=== PATIENT | male | born 1960 | race Caucasian/White ===

== ENCOUNTER 2019-07-31 18:58 | Emergency (ER) | payer BC, OTHER ==
[2019-07-31] MEDS ORDERED: HYDROmorphone 1 MG/ML Syringe IM ONE (19:16)
--- NOTE | 2019-07-31 19:20 | EDM.PDOC ---
ED HPI GENERAL MEDICAL PROBLEM - General Chief Complaint: Upper Extremity Injury/Pain Stated Complaint: LEFT FINGER POSSBILE BREAKING Time Seen by Provider: 07/31/19 19:05 Source of Information: Reports: Patient History Limitations: Reports: No Limitations - History of Present Illness INITIAL COMMENTS - FREE TEXT/NARRATIVE: HISTORY AND PHYSICAL: History of present illness: Patient is a 58-year-old male who presents to the emergency room with complaints of "dislocated shoulder" on the left. He states last night he slipped and fell on his left side resulting in what he believes is a dislocation. He has tried multiple times to reduce it himself, has been unsuccessful. He has had dislocations before and recalls it happening quite frequently several years ago. It has not happened in 1 to 2 years. Denies hitting his head or having any LOC. Denies any other extremity involvement. Patient denies any fever, chills, headache, change in vision, syncope or near syncope. Denies any cardiac, respiratory, GI or symptoms. Patient has been eating and drinking appropriately. Review of systems: As per history of present illness and below otherwise all systems reviewed and negative. Past medical history: As per history of present illness and as reviewed below otherwise noncontributory. Surgical history: As per history of present illness and as reviewed below otherwise noncontributory. Social history: See social history for further information Family history: As per history of present illness and as reviewed below otherwise noncontributory. Physical exam: General: Well-developed and well-nourished 58-year-old male. Alert and oriented. Nontoxic-appearing and in no acute distress. HEENT: Atraumatic, normocephalic, pupils equal and reactive bilaterally, negative for conjunctival pallor or scleral icterus, mucous membranes moist, TMs normal bilaterally, throat clear, neck supple, nontender, trachea midline. No drooling or trismus noted. No meningeal signs. No hot potato voice noted. Lungs: Clear to auscultation, breath sounds equal bilaterally, chest nontender. Heart: S1S2, regular rate and rhythm without overt murmur Abdomen: Soft, nondistended, nontender. C-spine/Back: No pinpoint vertebral tenderness upon palpation. No crepitus, step -offs or obvious deformities. Patient is ambulatory into the emergency room without difficulty or deficit. Able to rock back on heels and walk on toes. Denies any urinary or fecal incontinence. Denies any numbness, tingling or saddle paresthesia. Skin: Intact, warm, dry. No lesions or rashes noted. Extremities: Limited ROM of left shoulder. Unable to touch the contralateral side. Otherwise he moves all other extremities per self without difficulty or deficits, negative for cords or calf pain. Neurovascular unremarkable. Neuro: Awake, alert, oriented. Cranial nerves II through XII unremarkable. Cerebellum unremarkable. Motor and sensory unremarkable throughout. Exam nonfocal. Notes: Attempted closed reduction with massage and gentle traction with assistance of Dr Zavala. We were unsuccessful. Patient is larger stature and muscular; will likely need sedation. Anesthesia was called. A consent was obtained from the patient prior to closed reduction. GATE PERSON and Dr Zavala performed closed reduction without any complication. GATE PERSON recovered patient. VSS. Shoulder immobilizer post closed reduction of left shoulder until follow up with ortho. Patient has a ride home. Supportive care measures were reviewed and discussed. Voices understanding and is agreeable to plan of care. Denies any further questions or concerns at this time. Diagnostics: X-ray Therapeutics: Dilaudid IM, Versed, Propofol Prescription: None Impression: Shoulder dislocation, left Plan: 1. Rest, ice, elevate the affected extremity. Please wear the shoulder immobilizer as directed. 2. Tylenol and/or Ibuprofen as needed for pain management. 3. Follow up with the Orthopedic provider as we discussed. Return to the ED as needed and as discussed. Definitive disposition and diagnosis as appropriate pending reevaluation and review of above. left shoulder Pain Score (Numeric/FACES): 9 - Related Data Allergies Allergy/AdvReac Type Severity Reaction Status Date / Time No Known Allergies Allergy Verified 07/31/19 19:12 Home Meds: Home Meds Lisinopril 10 mg PO DAILY 11/08/17 [History] metFORMIN [Glucophage] 500 mg PO BID 11/08/17 [History] Past Medical History - Past Health History Medical/Surgical History: Denies Medical/Surgical History Cardiovascular History: Reports: Hypertension Endocrine/Metabolic History: Reports: Diabetes, Type II Social & Family History - Family History Family Medical History: Noncontributory - Tobacco Use Smoking Status *Q: Never Smoker Second Hand Smoke Exposure: No - Caffeine Use Caffeine Use: Reports: Tea - Recreational Drug Use Recreational Drug Use: No Review of Systems - Review of Systems Review Of Systems: Comprehensive ROS is negative, except as noted in HPI. ED EXAM, GENERAL - Physical Exam Exam: See Below (See dictation) Course - Vital Signs Last Recorded V/S: Last Vital Signs Temp 97.7 F 07/31/19 19:10 Pulse 83 07/31/19 20:54 Resp 15 07/31/19 20:54 BP 144/78 H 07/31/19 20:54 Pulse Ox 96 07/31/19 20:54 - Orders/Labs/Meds Orders: Active Orders 24 hr Category Date Time Status Sodium Chloride 0.9% [Saline Flush] Med 07/31/19 19:55 Active 10 ml FLUSH ASDIRECTED PRN Sodium Chloride 0.9% [Saline Flush] Med 07/31/19 19:55 Active 2.5 ml FLUSH ASDIRECTED PRN DME for Discharge [COMM] Stat Oth 07/31/19 20:01 Ordered Saline Lock Insert [OM.PC] Stat Oth 07/31/19 19:55 Ordered Medication Orders Sodium Chloride (Saline Flush) 10 ml FLUSH ASDIRECTED PRN PRN Reason: Keep Vein Open Sodium Chloride (Saline Flush) 2.5 ml FLUSH ASDIRECTED PRN PRN Reason: Keep Vein Open Meds: Medications Generic Name Dose Route Start Last Admin Trade Name Freq PRN Reason Stop Dose Admin Sodium Chloride 10 ml 07/31/19 19:55 Saline Flush FLUSH ASDIRECTED PRN Keep Vein Open Sodium Chloride 2.5 ml 07/31/19 19:55 Saline Flush FLUSH ASDIRECTED PRN Keep Vein Open Discontinued Medications Generic Name Dose Route Start Last Admin Trade Name Freq PRN Reason Stop Dose Admin Hydromorphone HCl 1 mg 07/31/19 19:16 07/31/19 19:22 Dilaudid IM 07/31/19 19:17 1 mg ONETIME ONE Administration Midazolam HCl Confirm 07/31/19 20:09 Versed 1 Mg/Ml Administered 07/31/19 20:10 Dose 2 mg .ROUTE .STK-MED ONE Propofol Confirm 07/31/19 20:08 Diprivan 20 Ml Administered 07/31/19 20:09 Dose 200 mg .ROUTE .STK-MED ONE Departure - Departure Time of Disposition: 20:22 Disposition: Home, Self-Care 01 Clinical Impression: Dislocation, shoulder Qualifiers: Encounter type: initial encounter Laterality: left Qualified Code(s): S43.005A - Unspecified dislocation of left shoulder joint, initial encounter - Discharge Information Instructions: Shoulder Dislocation Referrals: PCP,Not In Area [Primary Care Provider] - Forms: ED Department Discharge Additional Instructions: The following information is given to patients seen in the emergency department who are being discharged to home. This information is to outline your options for follow-up care. We provide all patients seen in our emergency department with a follow-up referral. The need for follow-up, as well as the timing and circumstances, are variable depending upon the specifics of your emergency department visit. If you don't have a primary care physician on staff, we will provide you with a referral. We always advise you to contact your personal physician following an emergency department visit to inform them of the circumstance of the visit and for follow-up with them and/or the need for any referrals to a consulting specialist. The emergency department will also refer you to a specialist when appropriate. This referral assures that you have the opportunity for follow-up care with a specialist. All of these measure are taken in an effort to provide you with optimal care, which includes your follow-up. Under all circumstances we always encourage you to contact your private physician who remains a resource for coordinating your care. When calling for follow-up care, please make the office aware that this follow-up is from your recent emergency room visit. If for any reason you are refused follow-up, please contact the [facility] Emergency Department at and asked to speak to the emergency department charge nurse. [facility] [address] [place] [id number] [address] 1. Rest, ice, elevate the affected extremity. Please wear the shoulder immobilizer as directed. 2. Tylenol and/or Ibuprofen as needed for pain management. 3. Follow up with the Orthopedic provider as we discussed. Return to the ED as needed and as discussed. Sepsis Event Note - Evaluation Sepsis Screening Result: No Definite Risk - Focused Exam Vital Signs: Vital Signs Temp Pulse Resp BP Pulse Ox 07/31/19 20:54 83 15 144/78 H 96 07/31/19 20:37 82 17 193/67 H 93 L 07/31/19 20:29 79 19 175/109 H 94 L 07/31/19 19:10 97.7 F 98 20 153/89 H 93 L Date Exam was Performed: 07/31/19 Time Exam was Performed: 21:11 - My Orders Last 24 Hours: My Active Orders 07/31/19 19:55 Sodium Chloride 0.9% [Saline Flush] 10 ml FLUSH ASDIRECTED PRN Sodium Chloride 0.9% [Saline Flush] 2.5 ml FLUSH ASDIRECTED PRN Saline Lock Insert [OM.PC] Stat 07/31/19 20:01 DME for Discharge [COMM] Stat - Assessment/Plan Last 24 Hours: My Active Orders 07/31/19 19:55 Sodium Chloride 0.9% [Saline Flush] 10 ml FLUSH ASDIRECTED PRN Sodium Chloride 0.9% [Saline Flush] 2.5 ml FLUSH ASDIRECTED PRN Saline Lock Insert [OM.PC] Stat 07/31/19 20:01 DME for Discharge [COMM] Stat
--- NOTE | 2019-07-31 19:31 | CR ---
Left shoulder: 2 views of the left shoulder were obtained. Anterior dislocation is noted. Mild degenerative change is noted within the acromioclavicular joint with slight inferior spurring. No additional abnormality is appreciated. Impression: 1. Anterior dislocation. 2. Other findings as noted above. Diagnostic code #3 Study was dictated in [place] Standard Time
[2019-07-31] MEDS ORDERED: Sodium Chloride 0.9% 10 ML Syringe FLUSH PRN (19:55)
[2019-07-31] MEDS ORDERED: Sodium Chloride 0.9% 2.5 ML Syringe FLUSH PRN (19:55)
[2019-07-31] MEDS ORDERED: Lactated Ringers 1,000 ML IV ONE (20:05)
[2019-07-31] MEDS ORDERED: Propofol 200 MG/20 ML SDV ONE (20:08)
[2019-07-31] MEDS ORDERED: Midazolam 1 MG/ML 2 ML SDV ONE (20:09)
--- NOTE | 2019-07-31 20:35 | PCM.PREANE ---
Preanesthetic Assessment - Anesthesia/Transfusion/Family Hx Anesthesia History: Prior Anesthesia Without Reaction Family History of Anesthesia Reaction: No - Physical Assessment NPO Status Date: 07/30/19 NPO Status Time: 12:00 Vital Signs: Last Vital Signs Temp 36.5 C 07/31/19 19:10 Pulse 79 07/31/19 20:29 Resp 19 07/31/19 20:29 BP 175/109 H 07/31/19 20:29 Pulse Ox 94 L 07/31/19 20:29 Height: 1.7 m Weight: 117.934 kg ASA Class: 2E Mental Status: Alert & Oriented x3 Airway Class: Mallampati = 2 Dentition: Reports: Normal Dentition Thyro-Mental Finger Breadths: 3 Mouth Opening Finger Breadths: 3 ROM/Head Extension: Full - Allergies Allergies/Adverse Reactions: Allergies Allergy/AdvReac Type Severity Reaction Status Date / Time No Known Allergies Allergy Verified 07/31/19 19:12 - Acknowledgements Anesthesia Type Planned: MAC Pt an Appropriate Candidate for the Planned Anesthesia: Yes Alternatives and Risks of Anesthesia Discussed w Pt/Guardian: Yes Pt/Guardian Understands and Agrees with Anesthesia Plan: Yes PreAnesthesia Questionnaire - Past Health History Medical/Surgical History: Denies Medical/Surgical History Cardiovascular History: Reports: Hypertension Endocrine/Metabolic History: Reports: Diabetes, Type II - SUBSTANCE USE Smoking Status *Q: Never Smoker Second Hand Smoke Exposure: No Recreational Drug Use History: No - HOME MEDS Home Medications: Home Meds Lisinopril 10 mg PO DAILY 11/08/17 [History] metFORMIN [Glucophage] 500 mg PO BID 11/08/17 [History] - CURRENT (IN HOUSE) MEDS Current Meds: Current Medications Sodium Chloride (Saline Flush) 10 ml FLUSH ASDIRECTED PRN PRN Reason: Keep Vein Open Sodium Chloride (Saline Flush) 2.5 ml FLUSH ASDIRECTED PRN PRN Reason: Keep Vein Open Discontinued Medications Hydromorphone HCl (Dilaudid) 1 mg IM ONETIME ONE Stop: 07/31/19 19:17 Last Admin: 07/31/19 19:22 Dose: 1 mg Midazolam HCl (Versed 1 Mg/Ml) Confirm Administered Dose 2 mg .ROUTE .STK-MED ONE Stop: 07/31/19 20:10 Propofol (Diprivan 20 Ml) Confirm Administered Dose 200 mg .ROUTE .STK-MED ONE Stop: 07/31/19 20:09
--- NOTE | 2019-07-31 20:37 | PCM.PRNOTE ---
- Free Text/Narrative Note: Anes Note I was called to ER to provide IV conscious sedation for this patient with a dislocated left shoulder. PreO2 times 3 minutes. IV sedation consists of 1 mg versed and 40 mg propofol. Light sedation was provided. Shoulder was easily reduced by ER physician with a single attempt. Patient was immediately awake and oriented. Tolerated well. Time with patient Darius Biggs CRNA
--- NOTE | 2019-07-31 20:40 | CR ---
Left shoulder: Single view of the left shoulder was obtained. Comparison: Prior left shoulder study performed on the same day (7:17 p.m.). Degenerative change remains stable within the left acromioclavicular joint. Previous dislocation has been reduced. There is a Hill-Sachs deformity within the posterolateral humeral head. Impression: 1. Previous dislocation has been reduced. 2. Other findings as noted above. Diagnostic code #2 This report was dictated in MDT
== END 2019-07-31 21:30 | disposition home or self-care (01) ==
LOC: MW.ED 18:58
DX: S43.005A Unspecified dislocation of left shoulder joint, initial encounter (principal); I10 Essential (primary) hypertension; E11.9 Type 2 diabetes mellitus without complications; Z79.84 Long term (current) use of oral hypoglycemic drugs; Z79.899 Other long term (current) drug therapy; W01.0XXA Fall on same level from slipping, tripping and stumbling without subsequent striking against object, initial encounter
CPT/HCPCS: 23650; 73030; 96372; 99283; J1170; J7120; 01620; 23655